=== PATIENT | male | born 1995 | race Caucasian/White ===

== ENCOUNTER 2016-07-29 19:58 | Inpatient (IN) | payer OTHER ==
[~2016-07-29] VITALS: Ht 186.7 cm; Wt 64.8 kg
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
[2016-07-29] MEDS ORDERED: CENTRUM COMPLE1 EACH PO (22:24)
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
--- NOTE | 2016-07-30 05:26 | NUR ---
Significant Event: Patient arrived on floor from ER at 2207. A&OX3. Denies N&T PERRLA. Equal strength throughout. On tele SR. VSS. Low grade temp of 99.2. RA lungs clear. Voids per urinal. Activity as tolerates. Has had nausea on clear liquid diet. Bruising to L) side of face and L) eye. Bruising and abrasion to R) upper arm. Small abrasion to R) knee. IV to R) AC running NS at 125ml/hr. Follow up: Mother coming from [place] should arrive early afternoon. Wallet given to security to lock up.
--- NOTE | 2016-07-30 14:32 | NUR ---
1330 Stopped by to see Jr but he was sleeping so I will attepmt to stop back by later and see him. Per RN Molly, plan is for Jr to dismiss tomorrow to home. He doesn't have any cloths, so she requested that we bring him some up when we come to see him. ANUPAMA Cox was going to follow up with meeting with Jr and also bring him cloths later this afternoon.
--- NOTE | 2016-07-30 17:06 | NUR ---
Significant Event:VSS, A/O x 3, denies headache, numbness/tingling to extremities. PEERL 3mm. Neuros WNL. L eyelid and L upper cheek slightly purple. Abrasions to R medial upper/lower forearm, R knee, R flank. All open to air, no drainage. C spine films negative for injury. Ambulates in room, up in chair for meals, then returns to bed. IVSL to R AC. Mom and brother here with updates given. Follow up:Possible DC to home on 07/31/16
--- NOTE | 2016-07-31 04:39 | NUR ---
Significant Event:Patient alert and ox3. Up with STBA. C/o pain left side hylton, some soreness with Tylenol given x1 at HS. Moves all extremeties spontaneously and to command. PIV rt antecubital SL. Does state decreased appetite and tends to eat a little bit at a time. Several areas of bruising/abrasions. Mod BM this shift. Follow up:Probable home today.
--- NOTE | 2016-07-31 15:36 | NUR ---
A&O. VSS.IND. LS CLEAR. BS ACTIVE. VD PER BR. BM 07/30. SCATTERED ECCHY. C/O OF GENERAL SORENESS BUT TOLERABLE. MOTHER AND BROTHER AT BEDSIDE. DISMISSAL INSTRUCTIONS REVIEWED, QUESTIONS ANSWERED. DC IV . PT TAKEN TO LOBBY VIA WC TO PRIVATE VEHICLE WITH FAMILY TO HOME
== END 2016-07-31 15:44 | disposition disaster alternative care site (69) | DRG 87 ==
LOC: GACC 19:58 → GNTU 21:10
PROVIDERS: ADMIT Neurological Surgery
DX: S02.19XA Other fracture of base of skull, initial encounter for closed fracture (principal); S06.5X0A Traumatic subdural hemorrhage without loss of consciousness, initial encounter; Z23 Encounter for immunization; V53.6XXA Passenger in pick-up truck or van injured in collision with car, pick-up truck or van in traffic accident, initial encounter
CPT/HCPCS: G0009; J2270; J2405; J7030